=== PATIENT | female | born 1985 | race Caucasian/White ===

== ENCOUNTER 2018-10-19 11:30 | Inpatient (IN) | payer OTHER ==
[~2018-10-19] VITALS: Ht 170.2 cm; Wt 112.3 kg
[2018-10-19] VITALS (46 sets, daily range): BP systolic 114–147; BP diastolic 56–96; PULSE 66–113; TEMP 97.2–98.7
[2018-10-19] MEDS ORDERED: ZANTAC 7575 MG PO (11:43)
[2018-10-19] MEDS ORDERED: VALTREX 50500 MG/TAB PO (11:43)
[2018-10-19] MEDS ORDERED: FIBER0.52 GM (11:44)
[2018-10-19] MEDS ORDERED: PRENATAL VITAMI1 TA3 PO (11:44)
--- NOTE | 2018-10-19 12:00 | NUR ---
1135- Pt arrives on unit for labor check, ambulatory with . Pt into bathroom, changes into gown, voids. 1141- Pt into bed, EFM and TOCO on and tracing. VSS. 1145- SVE by this RN -, intact. Assessment completed. 1152- Dr Pena notified of Pt and status. Routine labor check. Call with update.
--- NOTE | 2018-10-19 12:30 | NUR ---
1222- TOCO adjusted, Pt given marker button and explained to press at the start of each UC, Pt verbalizes understanding.
[2018-10-19 12:57] LABS: BASO # 0.1 (0.0-0.2); BASO % 0.4 % (0.0-2.0); EOS # 0.1 (0.0-0.7); EOS % 0.6 % (0-4.0); GRAN # 8.7 (1.4-6.5); GRAN % 71.5 % (42.2-75.2); HEMATOCRIT 41.2 % (37.0-47.0); HEMOGLOBIN 14.2 g/dl (12.5-16.0); LYMPH # 2.6 (1.2-3.4); LYMPH % 20.9 % (20.0-51.0); MEAN CELL VOLUME 85 fl (80.0-100.0); MEAN CORPUSCULAR HEMOGLOBIN 29 pg (27.0-31.0); MEAN CORPUSCULAR HGB CONC 35 g/dl (33.0-37.0); MEAN PLATELET VOLUME 11.9 fl (7.4-10.4); MONO # 0.8 (0.1-0.6); MONO % 6.2 % (1.7-9.3); PLATELET COUNT 214 K/mm3 (130-400); RED BLOOD COUNT 4.87 M/mm3 (4.10-5.30); REDCELL DISTRIBUTION WIDTH-CV 14.4 % (11.5-14.5)
--- NOTE | 2018-10-19 13:00 | NUR ---
1243- IV Micha garcia, LOKIE ENGINEER at bedside for epidural placement. Pt repositioned to sitting on side of bed. 1251- Single shot, see anesthesia record 1254- Test dose. 1258- Pt assisted to semi-fowlers. EFM and TOCO adjusted.
--- NOTE | 2018-10-19 13:30 | NUR ---
1325- Alexander placed without difficutly. SVE /-1, lots of bloody show noted. 1328- Dr Pena at bedside. Discusses plan of care with Pt and , questions encouraged. Reviews strip from bedside.
--- NOTE | 2018-10-19 21:00 | NUR ---
1814- Bedside report from SARAH Miller. Patient sitting upright at this time. Pitocin infusing at 10 mU. 1899- Patient having N/V at this time and feeling increased pressure. SVE Anterior Lip. Practice push x1 and unable to reduce anterior lip. on unit and updated. 1924- RN to bedside. Patient continues to have increased pressure. SVE Anterior Lip. Practice push x1 and unable to reduce anterior lip at this time. on unit and updated. 1954- at bedside. SVE Complete/+1. RN to start pushing with patient during contractions. 2005- Late deceleration noted after pushing with contractions. FHR audibly remains in the 80's. Patient repositioned to LL with LR IV bolus infusing. O2 applied. at bedside. 2009- Alexander Catheter removed. 150ml out. remains at bedside. Vacuum extraction delivery suggested by MD at this time. Patient and educated on risks/benefits by MD and agree with plan of care. 2016- Push with Vacuum #1. 2020- Push with Vacuum #2. 2023- Push with Vacuum #3. 2026- Push with Vacuum #4. Vacuum removed by MD at this time. 2028- Patient begins pushing with contraction without vacuum. 2031- of viable baby girl. Cord clamped and cut. Pitocin off. NB care assumed by SARAH Ontiveros. 2034- Spontaneous delivery of placenta. Pitocin infusing at 333 ml/hr. First degree tear repaired by MD. Pericare completed. 2034- PP Recovery started.
[2018-10-20] VITALS: BP 120/62; PULSE 82; TEMP 98.9
[2018-10-20 04:00] VITALS: BP 114/69; PULSE 80; TEMP 98.3
[2018-10-20 09:30] VITALS: BP 116/60; PULSE 83; TEMP 98.4
--- NOTE | 2018-10-20 10:26 | NUR ---
Initial visit; Parents thanked [employer] for offering congratulations and God's blessings for the of their daughter. [employer] thanked family for choosing [facility].
[2018-10-20 16:50] VITALS: BP 132/80; PULSE 80; TEMP 97.9
[2018-10-21 07:55] VITALS: BP 127/84; PULSE 74; TEMP 97.4
[2018-10-21] MEDS ORDERED: IBU800 M1 PO (10:02)
== END 2018-10-21 14:15 | disposition home or self-care (01) | DRG 807 ==
LOC: LDRO 11:30 → OB 12:40 → LDR 12:40 → OB 23:00
PROVIDERS: ADMIT Obstetrics & Gynecology
PROC: 10D07Z6 Extraction of Products of Conception, Vacuum, Via Natural or Artificial Opening (ICD-10-PCS; principal; 2018-10-19)
PROC: 0UQMXZZ Repair Vulva, External Approach (ICD-10-PCS; 2018-10-19)
DX: O98.52 Other viral diseases complicating childbirth (principal); Z37.0 Single live birth; O76 Abnormality in fetal heart rate and rhythm complicating labor and delivery; Z3A.39 39 weeks gestation of pregnancy; O71.82 Other specified trauma to perineum and vulva; B00.9 Herpesviral infection, unspecified; O99.214 Obesity complicating childbirth; J45.909 Unspecified asthma, uncomplicated; O99.52 Diseases of the respiratory system complicating childbirth; K21.9 Gastro-esophageal reflux disease without esophagitis; O99.344 Other mental disorders complicating childbirth
CPT/HCPCS: J2590; J7120

== ENCOUNTER → 2019-01-10 | Outpatient (CLI) | payer OTHER ==
[~2019-01-10] MED LIST: FIBER0.52 GM; IBU800 M1 PO; PRENATAL VITAMI1 TA3 PO; VALTREX 50500 MG/TAB PO; ZANTAC 7575 MG PO
== END ==
LOC: COL.RAD 13:54
DX: R10.11 Right upper quadrant pain (principal)

== ENCOUNTER → 2019-01-17 | Outpatient (CLI) | payer OTHER | LOC: COL.RAD 06:50 | DX: K82.8 Other specified diseases of gallbladder (principal) | CPT/HCPCS: A9537 ==

== ENCOUNTER 2019-02-01 06:38 | Day surgery (SDC) | payer OTHER ==
[2019-02-01] VITALS (9 sets, daily range): BP systolic 95–117; BP diastolic 39–69; PULSE 71–88; TEMP 98.2–98.8
[~2019-02-01] VITALS: Ht 167.6 cm; Wt 106.8 kg
--- NOTE | 2019-02-01 10:50 | NUR ---
Patient returns to room 8 per cart from PACU and is awake and alert. Temp 98.6 and sats 97% on 2L per nasal cannula. Lap sites x4 on abdomen covered with quijano set dry. Abdomen soft and rounded. IV fluids infusing #20G LW. Siderails up x2 and call light in reach. Spouse in room.
--- NOTE | 2019-02-01 11:05 | NUR ---
Resting and taking few ice chips.
[2019-02-01] MEDS ORDERED: NORCO 325 MG-51 TAB PO (11:10)
--- NOTE | 2019-02-01 11:20 | NUR ---
Complains of being to warm. Extra blankets removed and cool cloth on forehead. Rates incisional pain at 5/10. Eating chocolate pudding and will medicate for pain po meds.
--- NOTE | 2019-02-01 11:26 | NUR ---
[place] 5mg one tab given for pain at 5/10. IV fluids continue to infuse. States that she is now having intermittent mild nausea. Instructed to limit fluids and rest. Will continue to monitor.
--- NOTE | 2019-02-01 11:35 | NUR ---
Resting with eyes closed when not disturbed. Spouse in room.
--- NOTE | 2019-02-01 11:50 | NUR ---
Resting with eyes closed and offers no complaints of pain. Spouse in room.
--- NOTE | 2019-02-01 12:40 | NUR ---
More awake and denies increasing pain or nausea. Oxygen removed and sats maintained at 96%.
--- NOTE | 2019-02-01 12:50 | NUR ---
Spouse in room and talking with the patient.
--- NOTE | 2019-02-01 13:15 | NUR ---
Patient assisted up to the bathroom and gait is steady. Able to void and returns to room. States that her abdomen is sore. Eating saltine crackers.
--- NOTE | 2019-02-01 13:53 | NUR ---
States that she is having slight intermittent nausea. Zofran 4mg IV given prior to discontinuing IV. Instructed to avoid spicy, fried, or greasy foods until nausea has subsided.
--- NOTE | 2019-02-01 14:00 | NUR ---
Patient states that she is feeling better and wishes to be dismissed. IV discontinued and dismissal instructions signed. Able to dress self without increasing nausea or pain. Provided script for [place] and instructed to always take pain medication with food or snack.
--- NOTE | 2019-02-01 14:09 | NUR ---
Patient dismissed to home driven by spouse per private vehicle and taken to the front door per wheelchair and assisted into car with instructions in hand.
== END 2019-02-01 14:09 | disposition home or self-care (01) ==
LOC: SDCO 06:38
DX: K80.10 Calculus of gallbladder with chronic cholecystitis without obstruction (principal); J45.909 Unspecified asthma, uncomplicated; K21.9 Gastro-esophageal reflux disease without esophagitis; G43.909 Migraine, unspecified, not intractable, without status migrainosus
CPT/HCPCS: J0690; J1100; J1170; J2405; J2704; J3010; J7120